=== PATIENT | female | born 1990 | race Caucasian/White ===

== ENCOUNTER 2018-07-25 11:27 | Inpatient (IN) | payer OTHER ==
[2018-07-25] MEDS ORDERED: MISOPROSTOL 200 MCG TAB PR (14:00)
[2018-07-25] MEDS ORDERED: IBUPROFEN 600 MG TAB PO (14:00)
[2018-07-25] MEDS ORDERED: OXYTOCIN 30 UNITS/LR 500 ML IV ×3 (14:00)
[2018-07-25] MEDS ORDERED: CARBOPROST 250 MCG INJ IM (14:00)
[2018-07-25] MEDS ORDERED: LIDOCAINE 1% (MPF) 30 ML INJ INJ (14:00)
[2018-07-25] MEDS ORDERED: METHYLERGONOVINE 0.2 MG INJ IM (14:00)
[2018-07-25] MEDS: LACTATED RINGER'S 1,000 ML IV ×2 (15:53→22:22)
[2018-07-25 16:07] LABS: ADD MAN DIFF? NO
[2018-07-25 16:09] LABS: BASOPHILS % 0.4 % (0.0-2.0); EOSINOPHILS # 0.1 10^3/ul (0.0-0.5); EOSINOPHILS % 0.6 % (0.0-7.0); HEMATOCRIT 35.4 % (37.0-47.0); HEMOGLOBIN 11.7 g/dl (12.0-16.0); LYMPHOCYTES # 1.9 10^3/ul (0.8-2.9); LYMPHOCYTES % 17.1 % (15.0-51.0); MEAN CORPUSCULAR HEMOGLOBIN 29.2 pg (29.0-33.0); MEAN CORPUSCULAR HGB CONC 33.1 g/dl (32.0-37.0); MEAN CORPUSCULAR VOLUME 88.3 fl (82.0-101.0); MONOCYTE # 0.8 10^3/ul (0.3-0.9); MONOCYTES % 7.2 % (0.0-11.0); NEUTROPHILS % 74.1 % (39.0-77.0); PLATELET COUNT 247 10^3/UL (140-415); RED BLOOD COUNT 4.01 10^6/ul (4.20-5.40); RED CELL DISTRIBUTION WIDTH 14.3 % (11.5-14.5)
[2018-07-25 16:09] LABS: WHITE BLOOD COUNT 10.9 10^3/ul (4.8-10.8)
[2018-07-25] MEDS: MISOPROSTOL 50 MCG CAPSULE PO (16:18)
[2018-07-25 16:28] LABS: INR 0.87; PROTIME 11.9 Sec (11.9-14.9); PT RATIO 0.9
[2018-07-25 16:29] LABS: PARTIAL THROMBOPLASTIN TIME 26.6 Sec (23.0-35.0)
[2018-07-25 16:59] LABS: HEPATITIS B SURFACE ANTIGEN NEGATIVE (NEGATIVE)
[2018-07-25 22:03] LABS: RAPID PLASMA REAGIN NONREACTIVE (NR)
[2018-07-26] MEDS: MISOPROSTOL 50 MCG CAPSULE PO ×7 (03:11→20:10)
[2018-07-26] MEDS: LACTATED RINGER'S 1,000 ML IV ×2 (06:34→14:39)
[2018-07-27] MEDS: LACTATED RINGER'S 1,000 ML IV ×4 (00:51→16:37)
[2018-07-27] MEDS: OXYTOCIN 30 UNITS/LR 500 ML IV (06:11)
[2018-07-28] MEDS: LACTATED RINGER'S 1,000 ML IV ×2 (01:13→22:54)
[2018-07-28] MEDS ORDERED: OXYTOCIN 30 UNITS/LR 500 ML BAG IV (07:00)
[2018-07-28] MEDS ORDERED: OXYTOCIN 10 UNIT INJ (07:00)
[2018-07-28] MEDS ORDERED: CEFAZOLIN 2 GM/50 ML (PMX) 50 ML IVPB (07:24)
[2018-07-28] MEDS ORDERED: CLINDAMYCIN 900 MG/D5W (PMX) 50 ML IVPB ×2 (07:30)
[2018-07-28] MEDS ORDERED: GENTAMICIN (07:47)
[2018-07-28] MEDS ORDERED: NS (07:47)
[2018-07-28] MEDS ORDERED: GENTAMICIN 80 MG/NS (PMX) 50 ML IVPB (08:00)
[2018-07-28] MEDS ORDERED: GENTAMICIN 80 MG/NS (PMX) 50 ML (08:04)
[2018-07-28] MEDS ORDERED: morphine SULFATE/PF (10 MG/10 ML) INJ (08:17)
[2018-07-28] MEDS ORDERED: PHENYLephrine (100 MCG/ML) 10ML SYG (08:41)
[2018-07-28] MEDS ORDERED: ONDANSETRON 4 MG INJ (08:53)
[2018-07-28] MEDS ORDERED: KETOROLAC 30 MG INJ (08:53)
[2018-07-28] MEDS ORDERED: DEXAMETHASONE 4 MG/ML 1 ML INJ (08:53)
[2018-07-28] MEDS ORDERED: METOCLOPRAMIDE 10 MG INJ (08:53)
[2018-07-28] MEDS ORDERED: morphine 2 MG INJ IV ×2 (09:00)
[2018-07-28] MEDS ORDERED: HYDROmorphONE 1 MG/5 ML IV SYRINGE IV ×2 (09:00)
[2018-07-28] MEDS ORDERED: ACETAMINOPHEN 500 MG TAB PO (09:00)
[2018-07-28] MEDS ORDERED: HYDROmorphONE 0.5 MG/0.5 ML SYG IV ×2 (09:00)
[2018-07-28] MEDS ORDERED: ONDANSETRON 4 MG INJ IV ×2 (09:00)
[2018-07-28] MEDS ORDERED: DIPHENHYDRAMINE 50 MG INJ IV ×2 (09:00)
[2018-07-28] MEDS ORDERED: OXYCODONE/ACETAMINOPHEN (5/325) TAB PO (09:00)
[2018-07-28] MEDS ORDERED: FENTAnyl 50 MCG/ML VIAL IV ×2 (09:00)
[2018-07-28] MEDS ORDERED: EPHEDrine SULFATE 50 MG/5 ML SYG IV (09:00)
[2018-07-28] MEDS ORDERED: MEPERIDINE 25 MG INJ IV (09:00)
[2018-07-28] MEDS ORDERED: KETOROLAC 30 MG INJ IV (09:00)
[2018-07-28] MEDS ORDERED: METOCLOPRAMIDE 10 MG INJ IV (09:00)
[2018-07-28] MEDS ORDERED: NALBUPHINE HCL (10 MG/1 ML) INJ IV (09:00)
[2018-07-28] MEDS ORDERED: NALOXONE (0.4 MG/ML) INJ IV (09:00)
[2018-07-28] MEDS ORDERED: HYDROCODONE/APAP (5/325) TAB PO (09:00)
[2018-07-28] MEDS ORDERED: CARBOPROST 250 MCG INJ IM (09:30)
[2018-07-28] MEDS ORDERED: OXYTOCIN 30 UNITS/LR 500 ML IV (09:30)
[2018-07-28] MEDS ORDERED: MISOPROSTOL 200 MCG TAB PR (09:30)
[2018-07-28] MEDS ORDERED: NACL 0.9% 3 ML SYG IV (09:30)
[2018-07-28] MEDS ORDERED: METHYLERGONOVINE 0.2 MG INJ IM (09:30)
[2018-07-28] MEDS: LANOLIN HPA 1 PKT TOP (12:37)
[2018-07-28] MEDS: OXYTOCIN 30 UNITS/LR 500 ML IV (12:39)
[2018-07-28] MEDS: SENNA/DOCUSATE NA (8.6MG/50MG) TAB PO (21:00)
[2018-07-29] MEDS: LACTATED RINGER'S 1,000 ML IV ×2 (06:52→14:30)
[2018-07-29 07:23] LABS: ADD MAN DIFF? NO
[2018-07-29 07:27] LABS: BASOPHIL # 0.1 10^3/ul (0.0-0.1); BASOPHILS % 0.4 % (0.0-2.0); EOSINOPHILS # 0.1 10^3/ul (0.0-0.5); EOSINOPHILS % 0.6 % (0.0-7.0); HEMOGLOBIN 9.2 g/dl (12.0-16.0); LYMPHOCYTES # 2.5 10^3/ul (0.8-2.9); LYMPHOCYTES % 17.9 % (15.0-51.0); MEAN CORPUSCULAR HEMOGLOBIN 29.8 pg (29.0-33.0); MEAN CORPUSCULAR HGB CONC 34.1 g/dl (32.0-37.0); MEAN CORPUSCULAR VOLUME 87.4 fl (82.0-101.0); MEAN PLATELET VOLUME 12.2 fl (7.4-10.4); MONOCYTES % 7.1 % (0.0-11.0); NEUTROPHIL # 10.4 10^3/ul (1.6-7.5); NEUTROPHILS % 73.5 % (39.0-77.0); PLATELET COUNT 219 10^3/UL (140-415); RED BLOOD COUNT 3.09 10^6/ul (4.20-5.40); RED CELL DISTRIBUTION WIDTH 14.6 % (11.5-14.5)
[2018-07-29 07:27] LABS: WHITE BLOOD COUNT 14.2 10^3/ul (4.8-10.8)
[2018-07-29] MEDS: SENNA/DOCUSATE NA (8.6MG/50MG) TAB PO ×2 (09:35→21:39)
[2018-07-29] MEDS: FERROUS SULFATE (EC) 325 MG TAB PO ×2 (09:35→21:39)
[2018-07-29] MEDS: IBUPROFEN 600 MG TAB PO ×2 (12:31→17:41)
[2018-07-29] MEDS: OXYCODONE/ACETAMINOPHEN (5/325) TAB PO (22:49)
[2018-07-30] MEDS: OXYCODONE/ACETAMINOPHEN (5/325) TAB PO ×2 (04:27→09:12)
[2018-07-30] MEDS: IBUPROFEN 600 MG TAB PO ×5 (05:40→23:58)
[2018-07-30] MEDS: SENNA/DOCUSATE NA (8.6MG/50MG) TAB PO ×2 (09:11→20:57)
[2018-07-30] MEDS: LANOLIN HPA 1 PKT TOP (09:11)
[2018-07-30] MEDS: FERROUS SULFATE (EC) 325 MG TAB PO ×2 (09:12→20:57)
[2018-07-30] MEDS ORDERED: ACETAMINOPHEN 325 MG TAB PO (11:00)
[2018-07-30 12:02] LABS: ADD MAN DIFF? NO
[2018-07-30 12:07] LABS: WHITE BLOOD COUNT 13.3 10^3/ul (4.8-10.8)
[2018-07-30 12:07] LABS: BASOPHIL # 0.1 10^3/ul (0.0-0.1); BASOPHILS % 0.4 % (0.0-2.0); EOSINOPHILS # 0.3 10^3/ul (0.0-0.5); EOSINOPHILS % 2.2 % (0.0-7.0); HEMATOCRIT 27.7 % (37.0-47.0); HEMOGLOBIN 9.2 g/dl (12.0-16.0); LYMPHOCYTES # 2.1 10^3/ul (0.8-2.9); LYMPHOCYTES % 15.8 % (15.0-51.0); MEAN CORPUSCULAR HEMOGLOBIN 29.5 pg (29.0-33.0); MEAN CORPUSCULAR HGB CONC 33.2 g/dl (32.0-37.0); MEAN CORPUSCULAR VOLUME 88.8 fl (82.0-101.0); MEAN PLATELET VOLUME 11.6 fl (7.4-10.4); MONOCYTE # 0.8 10^3/ul (0.3-0.9); NEUTROPHILS % 75.1 % (39.0-77.0); PLATELET COUNT 247 10^3/UL (140-415); RED BLOOD COUNT 3.12 10^6/ul (4.20-5.40); RED CELL DISTRIBUTION WIDTH 14.8 % (11.5-14.5)
[2018-07-30] MEDS: BISACODYL 10 MG SUPP PR (20:57)
[2018-07-31] MEDS: IBUPROFEN 600 MG TAB PO ×4 (02:19→18:00)
[2018-07-31] MEDS: FERROUS SULFATE (EC) 325 MG TAB PO ×2 (08:49→21:38)
[2018-07-31] MEDS: SENNA/DOCUSATE NA (8.6MG/50MG) TAB PO ×2 (08:49→21:38)
[2018-07-31] MEDS: OXYCODONE/ACETAMINOPHEN (5/325) TAB PO ×2 (14:00→21:39)
[2018-08-01] MEDS: IBUPROFEN 600 MG TAB PO ×5 (03:13→18:00)
[2018-08-01] MEDS: SENNA/DOCUSATE NA (8.6MG/50MG) TAB PO ×2 (09:34→21:00)
[2018-08-01] MEDS: FERROUS SULFATE (EC) 325 MG TAB PO ×2 (09:34→21:11)
[2018-08-01] MEDS: OXYCODONE/ACETAMINOPHEN (5/325) TAB PO (11:09)
[2018-08-02] MEDS: IBUPROFEN 600 MG TAB PO ×4 (05:34→17:12)
[2018-08-02] MEDS: SENNA/DOCUSATE NA (8.6MG/50MG) TAB PO (09:07)
[2018-08-02] MEDS: FERROUS SULFATE (EC) 325 MG TAB PO (09:07)
== END 2018-08-02 20:20 | disposition home or self-care (01) | DRG 788 ==
LOC: OBT 11:27 → L-D 07-28 07:52 → PP1 07-28 12:05 → OBT 14:01 → L-D 13:30
PROVIDERS: Obstetrics & Gynecology
PROC: 10D00Z1 Extraction of Products of Conception, Low, Open Approach (ICD-10-PCS; principal; 2018-07-28 08:30)
DX: O41.03X0 Oligohydramnios, third trimester, not applicable or unspecified (principal); O62.0 Primary inadequate contractions; O89.4 Spinal and epidural anesthesia-induced headache during the puerperium; Z3A.39 39 weeks gestation of pregnancy; Z37.0 Single live birth
CPT/HCPCS: 76815; 76818; 85025; 85610; 85730; 86592; 86850; 86900; 86901; 87340; 99464